=== PATIENT | male | born 1945 | race Caucasian/White ===

== ENCOUNTER 2017-01-26 12:52 | Emergency (ER) | payer OTHER ==
[2017-01-26 12:56] VITALS: BP 159/69; BMI 26.3
--- NOTE | 2017-01-26 13:26 | DR.DIZZY ---
HPI - Time seen Time seen: 13:21 - PCP Primary Care Physician: [place] - Complaint Chief Complaint:: SPOUSE STATES WHEN PT. WOKE UP THIS MORNING, PT. HAS BEEN A LITTLE CONFUSED, STATING HE HAD AN ACCIDENT ON THE BED AND THAT HAS NEVER HAPPENED BEFORE. STATES "HE HAS NOT ACTED LIKE HIMSELF." PT. C/O DIZZINESS & WEAKNESS. - Nurses Notes Reviewed Nurses Notes Review: Yes - Source History Provided: Patient - Mode of Arrival Mode of Arrival: Ambulatory - Timing Onset of Chief Complaint: 01/26/17 Came on: Suddenly - Duration Duration: Since Onset How lon Duration: Hours - Location of Weakness Weakness Location: Generalized - Context Onset: While asleep History of: DM Stroke Symptoms: Dizziness - Modifying factors Worsens: Nothing - Associated signs and symptoms Associated Signs and Symptoms: Weak PMH - PMH Past Medical History: Yes Past Medical History: Diabetes Past Surgical History: Yes Surgical History: Ortho Surgery - Family History History of Family Medical Conditions: No - Social History Does patient currently use any type of tobacco product: No Have you used tobacco products in the last 12 months: No Type of Tobacco Use: None Does any household member use tobacco: No Alcohol Use: None Do you use any recreational Drugs:: No Lives With: Spouse Lives Where: Home - infectious screening In the last 2 months have you had wt loss of >10#?: NO Have you had fever, night sweats or hemotysis?: No Have you traveled outside the country in the last 6 months?: No Isolation: Standard ROS - Review of Systems Constitutional: Weakness Eyes: No Symptoms Reported ENTM: No Symptoms Reported Respiratoy: No Symptoms Reported Cardiovascular: No Symptoms Reported Gastrointestinal/Abdominal: No Symptoms Reported Genitourinary: Other (urine incontinence x 1) Neurological: Weakness, Dizziness Musculoskeletal: No Symptoms Reported Integumentary: No Symptoms Reported Hematologic/Lymphatic: No Symptoms Reported Endocrine: No Symptoms Reported Psychiatric: No Symptoms Reported PE - Vital Signs Vitals: Temperature 98 F Pulse Rate 83 Respiratory Rate 17 Blood Pressure 159/69 O2 Sat by Pulse Oximetry 94 - General Limitations: No Limitations General Appearance: Alert - Head Head Exam: Normal Inspection - Eyes Eye exam: EOMI. negative: Scleral Icterus, Conjunctival Injection Pupils: Regular, Round: Bilateral Sclera/Conjunctival: Normal Inspection: Bilateral Anterior Chamber: Normal Inspection: Bilateral - ENT ENT Exam: Normal Exam - Neck Neck Exam: Normal Inspection, Full ROM, Trachea Midline - Chest Chest Inspection: Normal Inspection, Symmetric Chest Wall Rise - Respiratory Respiratory Exam: Normal Lung Sounds Bilat. negative: Accessory Muscle Use, Respiratory Distress Respiratory Exam: Bilateral Clear to Auscultation - Cardiovascular Cardiovascular Exam: Regular Rate - Abdominal Exam Abdominal Exam: Normal Inspection, Normal Bowel Sounds, Soft. negative: Distention - Extremeties Extremities Exam: Normal Inspection, Full ROM - Back Back Exam: Normal Inspection, Full ROM, Tenderness - Neurologic Neurological Exam: Alert, Oriented X3, CN II-XII Intact Patient Oriented To: Person, Place, Time Speech: Fluid Speech - Psychiatric Psychiatric Exam: Normal Mood - Skin Skin Exam: Intact, Normal Color Course - Consultation Called: 14:21 Call Returned: 14:23 Consultation Comments: Case discussed with Dr. Sd [facility] accepted transport. Recommend Judy. ROR - Labs Reviewed Result Diagrams: 01/26/17 13:39 01/26/17 13:39 Laboratory: WBC 7.5 X10^3/uL (3.6-10.0) 01/26/17 13:39 RBC 5.45 X10^6/uL (4.7-6.0) 01/26/17 13:39 Hgb 15.7 g/dL (13.5-18.0) 01/26/17 13:39 Hct 45.7 % (42.0-54.0) 01/26/17 13:39 MCV 83.8 fL (80.0-100.0) 01/26/17 13:39 MCH 28.8 pg (27.0-34.0) 01/26/17 13:39 MCHC 34.4 g/dL (33.0-35.0) 01/26/17 13:39 RDW 13.6 % (11.6-16.5) 01/26/17 13:39 Plt Count 209 X10^3/uL (150.0-450.0) 01/26/17 13:39 MPV 8.9 fL (7.4-11.0) 01/26/17 13:39 Neut % 74.4 % (42.0-75.0) 01/26/17 13:39 Lymph % 18.4 % (21.0-51.0) L 01/26/17 13:39 [place] % 5.8 % (0.0-13.0) 01/26/17 13:39 Eos % 0.4 % (0.9-2.9) L 01/26/17 13:39 Baso % 1.0 % (0.2-1.0) 01/26/17 13:39 Neut # 5.6 x10^3/uL (2.2-4.8) H 01/26/17 13:39 Lymph # 1.4 X10^3/uL (1.3-2.9) 01/26/17 13:39 [place] # 0.4 x10^3/uL (0.3-0.8) 01/26/17 13:39 Eos # 0.0 x10^3/uL (0.0-0.2) 01/26/17 13:39 Baso # 0.1 X10^3/uL (0.0-0.1) 01/26/17 13:39 Absolute Nucleated RBC 0.0 /100WBC 01/26/17 13:39 Sodium 140 mmol/L (136-145) 01/26/17 13:39 Corrected Sodium 145 mmol/L (136-145) 01/26/17 13:39 Potassium 4.5 mmol/L (3.5-5.1) 01/26/17 13:39 Chloride 102 mmol/L (98-107) 01/26/17 13:39 Carbon Dioxide 28.3 mmol/L (21-32) 01/26/17 13:39 BUN 16 mg/dL (7-18) 01/26/17 13:39 Creatinine 1.32 mg/dL (0.70-1.30) H 01/26/17 13:39 Est GFR (MDRD) Af Amer > 60 (>60) 01/26/17 13:39 Est GFR (MDRD) Non-Af 57 (>60) L 01/26/17 13:39 Glucose 329 mg/dL (65-99) H 01/26/17 13:39 Calcium 9.6 mg/dL (8.5-10.1) 01/26/17 13:39 Corrected Calcium TNP 01/26/17 13:39 Total Bilirubin 0.80 mg/dL (0.2-1.0) 01/26/17 13:39 AST 62 Units/L (15-37) H 01/26/17 13:39 ALT 104 Units/L (12-78) H 01/26/17 13:39 Alkaline Phosphatase 65 Units/L (46-116) 01/26/17 13:39 Total Protein 8.1 g/dL (6.4-8.2) 01/26/17 13:39 Albumin 4.1 g/dL (3.4-5.0) 01/26/17 13:39 Globulin 4.0 g/dL (2.5-4.5) 01/26/17 13:39 Albumin/Globulin Ratio 1.0 Ratio (1.1-2.1) L 01/26/17 13:39 - XRAY XRAY Interpreted by: Radiologist XRAY Findings: CT head: 6x 6x5cm mass frontal lobe with mass effect - Diagnosis Discharge Problem: Brain tumor - Discharge Plan Condition: Stable - Follow ups/Referrals Follow ups/Referrals: THELMA LOVELACE [Primary Care Provider] - 3 days - Instructions
[2017-01-26 13:49] LABS: BASOPHILS # (AUTO) 0.1 X10^3/uL (0.0-0.1); EOSINOPHILS % (AUTO) 0.4 % (0.9-2.9); HEMATOCRIT 45.7 % (42.0-54.0); HEMOGLOBIN 15.7 g/dL (13.5-18.0); LYMPHOCYTES # (AUTO) 1.4 X10^3/uL (1.3-2.9); LYMPHOCYTES % (AUTO) 18.4 % (21.0-51.0); MEAN CORPUSCULAR HEMOGLOBIN 28.8 pg (27.0-34.0); MEAN CORPUSCULAR HGB CONC 34.4 g/dL (33.0-35.0); MEAN CORPUSCULAR VOLUME 83.8 fL (80.0-100.0); MEAN PLATELET VOLUME 8.9 fL (7.4-11.0); MONOCYTES # (AUTO) 0.4 x10^3/uL (0.3-0.8); MONOCYTES % (AUTO) 5.8 % (0.0-13.0); NEUTROPHILS # (AUTO) 5.6 x10^3/uL (2.2-4.8); NEUTROPHILS % (AUTO) 74.4 % (42.0-75.0); PLATELET COUNT 209 X10^3/uL (150.0-450.0); RED BLOOD COUNT 5.45 X10^6/uL (4.7-6.0); RED CELL DISTRIBUTION WIDTH 13.6 % (11.6-16.5); WHITE BLOOD COUNT 7.5 X10^3/uL (3.6-10.0)
[2017-01-26 13:58] LABS: ALANINE AMINOTRANSFERASE 104 Units/L (12-78); ALBUMIN 4.1 g/dL (3.4-5.0); ALKALINE PHOSPHATASE 65 Units/L (46-116); ASPARTATE AMINO TRANSFERASE 62 Units/L (15-37); BLOOD UREA NITROGEN 16 mg/dL (7-18); CALCIUM 9.6 mg/dL (8.5-10.1); CARBON DIOXIDE 28.3 mmol/L (21-32); CHLORIDE 102 mmol/L (98-107); COR NA(FOR HYPERGLY) 145 mmol/L (136-145); CREATININE 1.32 mg/dL (0.70-1.30); GLUCOSE 329 mg/dL (65-99); SODIUM 140 mmol/L (136-145); TOTAL PROTEIN 8.1 g/dL (6.4-8.2); eGFR BLACK RACES > 60 (>60); eGFR NON BLACK RACES 57 (>60)
[2017-01-26 14:05] LABS: BILIRUBIN,URINE NEGATIVE (NEGATIVE); BLOOD/HEMOGLOBIN,URINE 1+ (NEGATIVE); GLUCOSE, URINE 4+ (NEGATIVE); KETONES,URINE 1+ (NEGATIVE); LEUKOCYTE ESTERASE ,URINE NEGATIVE (NEGATIVE); NITRITES,URINE NEGATIVE (NEGATIVE); PROTEIN,URINE 2+ (NEGATIVE); UROBILINOGEN,URINE NORMAL (NORMAL)
--- NOTE | 2017-01-26 14:06 | CT ---
CT head without contrast Indication: Confusion, incontinence Comparison: None Technique: CT images of the head were obtained without contrast. Automatic exposure control was util ized. Findings: There is a mildly hyperattenuating mass centered within the right frontal lobe measuring 5 .9 x 5.7 x 5.1 cm (AP by transverse by craniocaudal). Small calcification is noted along the posteri or inferior margin of the mass. There is significant mass effect on the adjacent parenchyma and ante rior horns of the bilateral lateral ventricles, with suggestion of some edema of the adjacent white matter. There is extension of the mass to the left of midline. No acute bleed or abnormal extra-axia l collection identified. No significant skeletal abnormality identified. The visualized paranasal si nuses and mastoid air cells are clear. Impression: Hyperattenuating 5.9 x 5.7 x 5.1 cm frontal brain mass with significant associated mass effect. Recommend MRI of the brain with contrast for further evaluation. Reported By:
[2017-01-26] MEDS ORDERED: DECADRON INJ IVP ONE (14:25)
[2017-01-26] MEDS ORDERED: KEPPRA TAB 500 MG PO ONE (14:26)
[2017-01-26 14:27] LABS: APPEARANCE,URINE CLEAR (CLEAR); BACTERIA,URINE TRACE /HPF (NEGATIVE); COLOR,URINE DARK YELLOW (YELLOW); RBC,URINE RARE /HPF (NEGATIVE); SQUAMOUS EPITHELIAL CELL,UR MODERATE /HPF (NEGATIVE)
[2017-01-26 14:28] LABS: FINE GRANULAR CASTS,URINE FEW /LPF (NEGATIVE); HYALINE CASTS, URINE FEW /LPF (NEGATIVE); MUCUS,URINE FEW /HPF (NEGATIVE)
[2017-01-26] MEDS ORDERED: DECADRON INJ ONE ×2 (14:30→14:35)
[2017-01-26] MEDS ORDERED: HumuLIN R IV ONE (15:26)
[2017-01-26] MEDS ORDERED: HumuLIN R ONE (15:49)
[2017-01-26] MEDS ORDERED: SNACK - Diabetic Appropriate PO SCH (20:00)
== END 2017-01-26 15:52 | disposition short-term general hospital (02) ==
LOC: ER 13:01
DX: D43.2 Neoplasm of uncertain behavior of brain, unspecified (principal)
CPT/HCPCS: 36415; 70450; 80053; 81001; 85025; 96365; 96374; 96375; 99283; 99285; A4222; J1100; J1815